=== PATIENT | female | born 1955 | race Caucasian/White ===

== ENCOUNTER → 2020-01-20 15:29 | Outpatient (CLI) | payer OTHER, SELFPAY ==
--- NOTE | ~2020-01-20 | XR_ITS ---
XR shoulder RT min 2V DATE: 01/20/2020 15:55 INDICATION: Right shoulder pain TECHNIQUE: 4 views COMPARISON: None FINDINGS: No fracture or dislocation, periosteal reaction or bone destruction. There is minimal soft tissue calcification at the superior aspect of the greater tuberosity which may be consistent with mi ld calcific tendinitis. IMPRESSION: Mild focal calcification near the insertion of the rotator cuff, suggesting calcific tend initis Reviewed, dictated and finalized at location J. IMPRESSION: Mild focal calcification near the insertion of the rotator cuff, adams ggesting calcific tendinitis
--- NOTE | ~2020-01-20 | XR_ITS ---
EXAMINATION: XR abdomen/kub 1V EXAM DATE: 01/20/2020 15:55 INDICATION: Abdominal bloating. Generalized abdominal pain for few months. TECHNIQUE: Frontal projection(s) of the abdomen for interpretation. There is no prior study for letitia fowler. FINDINGS: There is moderate amount of colonic stool and gas. No small bowel dilation, nonobstructiv e bowel gas pattern. Calcifications in the pelvis are believed to be phleboliths. There is no orga nomegaly suspected. The bones are unremarkable. Lung bases are unremarkable. IMPRESSION: Moderate amount of colonic stool. Reviewed, dictated and finalized at location A.
== END ==
PROVIDERS: Visit Provider Nurse Practitioner Family
DX: M25.511 Pain in right shoulder (principal); R14.0 Abdominal distension (gaseous)
CPT/HCPCS: 73030; 74018

== ENCOUNTER → 2020-05-28 07:59 | Outpatient (CLI) | payer OTHER, SELFPAY ==
--- NOTE | ~2020-05-28 | US_ITS ---
EXAMINATION: US transvaginal DATE: 05/28/2020 10:19 INDICATION: Abdominal distention TECHNIQUE: Multiple endovaginal sonographic images of the pelvis were obtained. COMPARISON: None. FINDINGS: The uterus measures 6.2 x 2.3 x 3.8 cm. There is a small amount of fluid in the endocervica l canal. The endometrial complex measures 3 mm. The ovaries are not visualized however no adnexal abn ormality is seen. There is no free fluid in the pelvis. IMPRESSION: 1. No sonographic correlate for the patient's symptoms. Reviewed, dictated and finalized at location B.
--- NOTE | ~2020-05-28 | US_ITS ---
EXAMINATION: US abdomen complete DATE: 05/28/2020 08:35 INDICATION: Abdominal distention and bloating TECHNIQUE: Multiple grayscale and Doppler ultrasound images of the abdomen were obtained. COMPARISON: None available FINDINGS: The head, body, and tail of the pancreas are normal. The liver is normal with normal echoge nicity and echotexture. No surface nodularity. Normal hepatopetal flow in the main portal vein. The g allbladder is normal with no abnormal wall thickening, pericholecystic fluid or stones. The normal co mmon bile duct measures 6 mm. There was no sonographic Hoskins sign. The visualized portions of the ao rta and inferior vena cava are normal. The right kidney measures 10.4 x 3.0 x 5.4 cm. The left kidney measures 9.9 x 6.2 x 5.6 cm. The kidne ys demonstrate normal parenchymal echogenicity. There is no hydronephrosis. The spleen is normal in a ppearance and measures 8.7 cm. IMPRESSION: 1. No sonographic correlate for the patient's symptoms. Reviewed, dictated and finalized at location B.
== END ==
PROVIDERS: Visit Provider Nurse Practitioner Family
DX: R14.0 Abdominal distension (gaseous) (principal)
CPT/HCPCS: 76700; 76830

== ENCOUNTER 2020-06-10 14:45 | Outpatient (CLI) | payer OTHER, SELFPAY ==
--- NOTE | ~2020-06-10 | MM_ITS ---
EXAMINATION: MM screening doris BI w ayesha HISTORY: Screening mammogram TECHNIQUE: Craniocaudal and mediolateral oblique 3-D tomosynthesis images were obtained and synthetic 2-D images were generated. CAD analysis was submitted and interpreted. COMPARISON: No prior mammogram is available for comparison at this institution. BREAST PARENCHYMAL COMPOSITION: There are scattered areas of fibroglandular density. FINDINGS: A few benign calcifications are noted. There is no evidence of suspicious mass, calcificati on, or architectural distortion to suggest malignancy in either breast. There has been no suspicious interval change. IMPRESSION: 1. No mammographic evidence of malignancy. 2. Recommend routine screening mammography in one year. BI-RADS Category 2: Benign finding(s). Reviewed, dictated and finalized at location A.
== END 2020-06-10 14:46 | disposition home or self-care (01) ==
PROVIDERS: PCP Obstetrics & Gynecology; Visit Provider Obstetrics & Gynecology
DX: Z12.31 Encounter for screening mammogram for malignant neoplasm of breast (principal)
CPT/HCPCS: 77063; 77067

== ENCOUNTER → 2021-06-23 15:00 | Outpatient (CLI) | payer OTHER, SELFPAY ==
--- NOTE | ~2021-06-23 | MM_ITS ---
EXAMINATION: MM screening doris BI w ayesha HISTORY: Screening TECHNIQUE: Craniocaudal and mediolateral oblique 3-D tomosynthesis images were obtained and synthetic 2-D images were generated. CAD analysis was submitted and interpreted. COMPARISON: 06/10/2020 BREAST PARENCHYMAL COMPOSITION: There are scattered areas of fibroglandular density. FINDINGS: There is no evidence of suspicious mass, calcification, or architectural distortion to sugg est malignancy in either breast. There has been no suspicious interval change. IMPRESSION: 1. No mammographic evidence of malignancy. 2. Recommend routine screening mammography in one year. BI-RADS Category 1: Negative Reviewed, dictated and finalized at location A.
== END ==
PROVIDERS: PCP Nurse Practitioner Family; Visit Provider Obstetrics & Gynecology
DX: Z12.31 Encounter for screening mammogram for malignant neoplasm of breast (principal)
CPT/HCPCS: 77063; 77067

== ENCOUNTER 2024-08-22 10:06 | Emergency (ER) | payer OTHER, SELFPAY ==
[2024-08-22 10:30] VITALS: BP 104/62; PULSE 60; RESP 16; TEMP 36.5; O2SAT 100
--- NOTE | 2024-08-22 10:46 | ED.GENADULT ---
HPI - General Adult General Chief complaint: Extremity Injury, Lower Stated complaint: LT Foot Injury Time Seen by Provider: 08/22/24 10:48 Source: patient, RN notes reviewed and old records reviewed Mode of arrival: ambulatory Limitations: no limitations History of Present Illness HPI narrative: 68-year-old female presents to the [facility] with 2 complaints. Patient has a left lateral foot discomfort for 2 weeks since she rolled it. Patient has very mild swelling, no erythema or ecchymosis. Tenderness to the mid metatarsal. Patient also with a cough that she has had intermittently for unknown period of time Treatments prior to arrival: none Related Data Home Medications Medication Instructions Recorded Confirmed fexofenadine 180 mg tablet 180 mg PO DAILY 08/22/24 08/22/24 fluticasone propionate 50 2 spray intranasal DAILY 08/22/24 08/22/24 mcg/actuation nasal spray,suspension levothyroxine 88 mcg tablet 88 mcg PO DAILY 08/22/24 08/22/24 montelukast 10 mg tablet 10 mg PO HS 08/22/24 08/22/24 omeprazole 40 mg capsule,delayed 40 mg PO DAILY 08/22/24 08/22/24 release valacyclovir 500 mg tablet 500 mg PO DAILY 08/22/24 08/22/24 Allergies Allergy/AdvReac Type Severity Reaction Status Date / Time No Known Allergies Allergy Verified 08/22/24 10:22 Review of Systems Review of Systems: All systems reviewed & are unremarkable except as noted in HPI and below Constitutional: Constitutional: Reports no additional constitutional complaints ENT: Reports system reviewed and no additional complaints, except as documented Cardiovascular: Cardiovascular: Reports no additional cardiovascular complaints, Denies chest pain and Denies dyspnea Respiratory: Respiratory: Reports as per HPI, Reports no additional respiratory complaints, Denies chest congestion, Reports cough and Denies dyspnea Gastrointestinal: Gastrointestinal: Reports no additional gastrointestinal complaints, Denies abdominal pain, Denies nausea and Denies vomiting Musculoskeletal: Musculoskeletal: Reports as per HPI Integumentary/Breasts: Skin/Breast: Reports system reviewed and no additional complaints, except as docu PMFSH Comments At the time of my signature, I reviewed and agree with the nursing past medical, surgical, social, and family history. There is no relevant family history pertinent to the patient complaint. Exam Const: General: cooperative, healthy appearing, comfortable, no acute distress, well developed, alert and well nourished Nutritional Appearance: well nourished Orientation/consciousness: patient oriented x3 Limitations: no limitations HENMT: Head: normal to inspection Ears: hearing grossly normal bilaterally and external ears normal Face/Nose/Sinus: Normal external nose present, normal facial exam and face symmetric Face and sinus: normal facial exam and face symmetric Mouth: Yes Normal oral and palatal mucosa present, Yes lip normal and Yes tongue normal Eyes: General: appearance normal, both eyes and all related structures Alignment and Position: alignment normal Periorbital: periorbital findings normal Neck: Neck: normal visual inspection, full ROM, no lymphadenopathy and no meningeal signs Chest: Chest palpation & inspection: normal inspection of the chest Resp: Effort & Inspection: normal respiratory effort and able to speak in complete sentences Auscultation: clear to auscultation bilaterally, no crackles, no rales, no rhonchi and no wheezes Cardio: Rate: regular rate Skin: General skin exam: normal color and no rashes or lesions noted Lesions: no lesions Rashes: no rashes Wounds: no wounds Neuro: General: patient oriented x3, gait normal, tone normal, moves all extremities and no meningeal signs Cognition (Neuro): normal cognition Speech: normal speech Gait exam (Neuro): Normal gait present Extrem: General: normal to inspection, full ROM, capillary refill normal and normal gait Left lower extremity: foot Details: tenderness Location: of the medial foot, toes with normal ROM, no edema and vascular exam Details: dorsalis pedis pulse present and normal capillary refill; no abrasions, no lacerations, no ecchymosis and no puncture wound Psych: Appearance: grossly normal and well kempt Mental Status: mental status grossly normal Speech and movement: Normal speech and movement present and Clear speech present Affect: normal affect Attitude: cooperative Course Course Level of Care: Express Care Visit Vital Signs Vital signs: Vital Signs Temperature 97.7 F 08/22/24 10:30 Pulse Rate 60 08/22/24 10:30 Respiratory Rate 16 08/22/24 10:30 Blood Pressure 104/62 08/22/24 10:30 Pulse Oximetry 100 08/22/24 10:30 Oxygen Delivery Room Air 08/22/24 10:30 Temperature 97.7 F 08/22/24 10:30 Pulse Rate 60 08/22/24 10:30 Respiratory Rate 16 08/22/24 10:30 Blood Pressure 104/62 08/22/24 10:30 Pulse Oximetry 100 08/22/24 10:30 Oxygen Delivery Room Air 08/22/24 10:30 Reviewed Medical Decision Making MDM Narrative Medical decision making narrative: Patient sitting comfortably in exam room. Nontoxic, vitals stable. Patient in no acute distress Patient presents for cough that appears more chronic. No cough noted during exam, deep breathing. Lungs clear. Patient also with 2 week history of left lateral foot pain. Discussed doing an x-ray however patient has a toddler with her. Due to busy clinic we do not have anyone to watch the child. Patient offered to leave him in the room so she can go get an x-ray. Discussed that we cannot leave children unattended. Due to length of discomfort. Unlikely fracture and if it is already healing appear Discharge instructions reviewed with patient, as well as provided in writing per nursing staff. The instructions also include specific and strict return/GO TO THE ER as well as f/u information. All questions have been answered, and the patient deny any further questions with discharge and discharge plan. Some parts of this dictation were generated by voice recognition software and may contain typographical and/or grammatical inaccuracies. Differential Diagnosis Differential Diagnosis: Foot sprain, chronic cough Medical Records Medical records reviewed: Yes I reviewed the external patient's medical records. Vital Signs Vital Signs: Vital Signs Temperature 97.7 F 08/22/24 10:30 Pulse Rate 60 08/22/24 10:30 Respiratory Rate 16 08/22/24 10:30 Blood Pressure 104/62 08/22/24 10:30 Pulse Oximetry 100 08/22/24 10:30 Oxygen Delivery Room Air 08/22/24 10:30 Temperature 97.7 F 08/22/24 10:30 Pulse Rate 60 08/22/24 10:30 Respiratory Rate 16 08/22/24 10:30 Blood Pressure 104/62 08/22/24 10:30 Pulse Oximetry 100 08/22/24 10:30 Oxygen Delivery Room Air 08/22/24 10:30 Reviewed Lab Data Lab results reviewed: Yes I reviewed the patient's lab results. Labs: Reviewed Critical Care Time Critical Care Time Critical Care Time: No Discharge Plan Discharge Clinical Impression: Sprain of foot, left Qualifiers: Encounter type: initial encounter Qualified Code(s): S93.602A - Unspecified sprain of left foot, initial encounter Cough Qualifiers: Cough type: unspecified Qualified Code(s): R05.9 - Cough, unspecified Patient Disposition: Home, Self-Care Condition: Stable Instructions: Foot Sprain (ED), Acute Cough (ED) Additional Instructions: Continue [id number] treatments for your cough For the foot continue to rest, ice and elevate. Take Tylenol as needed. Wear good supportive shoes at all times. Follow-up with your primary care provider in 1-2 weeks if symptoms are not improving Patient Language: Belarusian Prescriptions: No Action fexofenadine 180 mg tablet 180 mg PO DAILY valacyclovir 500 mg tablet 500 mg PO DAILY omeprazole 40 mg capsule,delayed release(DR/EC) 40 mg PO DAILY levothyroxine 88 mcg tablet 88 mcg PO DAILY montelukast 10 mg tablet 10 mg PO HS fluticasone propionate 50 mcg/actuation spray,suspension 2 spray INTRANASAL DAILY Follow-up/Referrals: Deleon,Tia Bradley APN [Primary Care Provider] - 2 Weeks ([facility] follow [facility] ) Stand Alone Forms: Work/School Release IP Time of Disposition: 10:59
== END 2024-08-22 11:00 | disposition home or self-care (01) ==
PROVIDERS: Emergency Provider Nurse Practitioner; PCP Nurse Practitioner Family
DX: S93.602A Unspecified sprain of left foot, initial encounter (principal); X50.9XXA Other and unspecified overexertion or strenuous movements or postures, initial encounter; R05.9 Cough, unspecified; K21.9 Gastro-esophageal reflux disease without esophagitis; E03.9 Hypothyroidism, unspecified
CPT/HCPCS: 99212; G0463